=== PATIENT | male | born 1945 | race Caucasian/White ===

== ENCOUNTER → 2020-09-12 | Outpatient (CLI) | payer BC ==
[~2020-09-12] MED LIST: ALBU18HF INH; ALLO300T PO; AMLO2.5T5 PO; CLOB59LO2 TD; COLC0.6T37 PO; CYAN1TAB29 PO; GLIP5TAB10 PO; METF500T17 PO; TADA5TAB2 PO; VALS160T3 PO
[2020-09-12 13:12] LABS: MICROSCOPIC INDICATED
[2020-09-12 13:15] LABS: ALANINE AMINOTRANSFERASE 15 U/L (12-78); ANION GAP 4 mmol/L (5-15); CALCIUM 8.8 mg/dL (8.5-10.1); CHLORIDE 104 mmol/L (98-107); CREATININE 0.96 mg/dL (0.7-1.3)
[2020-09-12 13:18] LABS: ALKALINE PHOSPHATASE 86 U/L (45-117); BILIRUBIN,TOTAL 0.6 mg/dL (0.2-1.0); TOTAL PROTEIN 7.7 g/dL (6.4-8.2)
== END | disposition home or self-care (01) ==
LOC: STAR 11:49
PROVIDERS: ATTEND Urology
DX: Z01.812 Encounter for preprocedural laboratory examination (principal); Z20.822 Contact with and (suspected) exposure to COVID-19; N32.89 Other specified disorders of bladder
CPT/HCPCS: 36415; 80053; 81001; 87086; 93005; U0003; U0005

== ENCOUNTER 2020-09-18 06:49 | Day surgery (SDC) | payer BC ==
[~2020-09-18] VITALS: Ht 188 cm; Wt 98.0 kg
[2020-09-18 07:24] VITALS: BP_SYST 169; BP_SYST 174; BP_DIAS 101; BP_DIAS 103
[2020-09-18] MEDS ORDERED: GEMCITABINE HCL 2,000 MG in SODIUM CHLORIDE 0.9% 80 ML IS ONE (07:30)
[2020-09-18] MEDS ORDERED: CHLORHEXIDINE 15 ML UDC PO ONE (07:30)
[2020-09-18] MEDS ORDERED: LACTATED RINGERS 1,000 ML IV SCH (07:30)
[2020-09-18] MEDS ORDERED: FENTANYL PF 100 MCG/2ML ONE ×3 (08:10→09:49)
[2020-09-18] MEDS ORDERED: OPIUM/BELLADONNA SUPP.RECT 16.2-60 MG ONE (08:43)
[2020-09-18] MEDS ORDERED: OPIUM/BELLADONNA SUPP.RECT 16.2-30 MG ONE (08:44)
[2020-09-18] MEDS ORDERED: CEFAZOLIN 1,000 MG ONE ×2 (08:55→09:37)
[2020-09-18] MEDS ORDERED: PROPOFOL 10 MG/ML, 20ML ONE ×2 (08:55→09:37)
[2020-09-18] MEDS ORDERED: DEXAMETHASONE 4 MG/ML, 1ML ONE ×2 (08:55→09:37)
[2020-09-18] MEDS ORDERED: ONDANSETRON 2MG/ML, 2ML ONE ×2 (08:55→09:37)
[2020-09-18] MEDS ORDERED: ONDANSETRON 2MG/ML, 2ML IVPush PRN (09:00)
[2020-09-18] MEDS ORDERED: LABETALOL 5MG/ML, 20ML IV PRN (09:00)
[2020-09-18] MEDS ORDERED: OXYcodone 5 MG/5 ML ORAL.SOL UDC PO PRN (09:00)
[2020-09-18] MEDS ORDERED: METHOCARBAMOL 1,000 MG in DEXTROSE 5% 100 ML IV PRN (09:00)
[2020-09-18] MEDS ORDERED: ACETAMINOPHEN 325 MG TABLET PO PRN (09:00)
[2020-09-18] MEDS ORDERED: METOPROLOL 1 MG/ML, 5ML IV PRN (09:00)
[2020-09-18] MEDS ORDERED: PROMETHAZINE 25 MG SUPP PR PRN (09:00)
[2020-09-18] MEDS ORDERED: PROMETHAZINE 25 MG/ML, 1ML IVPush PRN (09:00)
[2020-09-18] MEDS: FENTANYL PF 100 MCG/2ML IV PRN ×2 (09:51→09:56)
[2020-09-18] MEDS ORDERED: HYDROmorphone 1 MG/ML, 1ML INJ ONE (09:59)
[2020-09-18] MEDS ORDERED: OXYcodone/APAP 5/325MG TABLET PO PRN (10:00)
[2020-09-18] MEDS ORDERED: ONDANSETRON 2MG/ML, 2ML IV PRN (10:00)
[2020-09-18] MEDS: HYDROmorphone 1 MG/ML, 1ML INJ IVPush PRN ×2 (10:00→10:12)
[2020-09-18] MEDS ORDERED: LABETALOL 5MG/ML, 20ML ONE (10:10)
[2020-09-18] MEDS ORDERED: hydrALAzine 20 MG/ML, 1ML ONE (10:38)
[2020-09-18] MEDS: hydrALAzine 20 MG/ML, 1ML IV PRN ×2 (10:43→11:09)
== END 2020-09-18 13:15 | disposition home or self-care (01) ==
LOC: OUT 06:49
PROVIDERS: ATTEND Urology
DX: D49.4 Neoplasm of unspecified behavior of bladder (principal); C67.9 Malignant neoplasm of bladder, unspecified; N35.912 Unspecified bulbous urethral stricture, male; N40.0 Benign prostatic hyperplasia without lower urinary tract symptoms; I10 Essential (primary) hypertension; E11.9 Type 2 diabetes mellitus without complications; J45.909 Unspecified asthma, uncomplicated; Z79.899 Other long term (current) drug therapy
CPT/HCPCS: 51720; 52235; 82962; 88307; J0360; J0690; J1100; J1170; J2405; J2704; J3010; J7120; J9201